=== PATIENT | male | born 2000 | race Caucasian/White ===

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

== ENCOUNTER 2023-12-01 13:38 | Emergency (ER) | payer OTHER ==
[~2023-12-01] VITALS: Ht 167.6 cm; Wt 72.6 kg
[2023-12-01 14:16] LABS: BASO % 0.4 % (0.0-1.0); EOS # 0.3 10^3/uL (0.0-0.5); EOS % 4.1 % (0.0-3.0); HEMATOCRIT 47.1 % (42.0-52.0); HEMOGLOBIN 16.7 g/dl (13.5-17.5); LYMPH # 2.5 10^3/uL (1.5-5.0); MEAN CORPUSCULAR HEMOGLOBIN 30.9 pg (27.0-33.0); MEAN CORPUSCULAR HGB CONC 35.5 g/dl (32.0-36.5); MEAN CORPUSCULAR VOLUME 87.2 fl (80.0-96.0); MONO # 0.7 10^3/uL (0.0-0.8); MONO % 9.5 % (2.0-8.0); NEUTROPHILS # 3.5 10^3/uL (1.5-8.5); NEUTROPHILS % 49.9 % (36.0-66.0); PLATELET COUNT, AUTOMATED 248 10^3/uL (150-450); WHITE BLOOD COUNT 7.1 10^3/uL (4.0-10.0)
[2023-12-01 14:47] LABS: LIPASE 36 U/L (12-53)
[2023-12-01 14:49] LABS: ALBUMIN 4.3 G/DL (3.2-5.2); ALKALINE PHOSPHATASE 79 U/L (46-116); ALT/SGPT 40 U/L (7.0-40); AST/SGOT 25 U/L (<34); BILIRUBIN,DIRECT 0.1 MG/DL (<0.4); BILIRUBIN,TOTAL 0.5 MG/DL (0.3-1.2); BLOOD UREA NITROGEN 24 MG/DL (9-23); CALCIUM LEVEL 9.4 MG/DL (8.5-10.1); CARBON DIOXIDE LEVEL 30 MMOL/L (20-31); CHLORIDE LEVEL 101 MMOL/L (98-107); CK-MB VALUE MASS 1.3 NG/ML (<3.6); CREATININE FOR GFR 0.87 MG/DL (0.70-1.30); GLOMERULAR FILTRATION RATE > 60.0 (>60); GLUCOSE, FASTING 89 MG/DL (60-100); SODIUM LEVEL 138 MMOL/L (136-145)
[2023-12-01 14:50] LABS: THYROID STIMULATING HORMONE 1.938 uIU/ML (0.55-4.78)
[2023-12-01 14:51] LABS: FREE T4 1.19 NG/DL (0.89-1.76)
[2023-12-01 14:53] LABS: CPK CREATINE PHOSPHOKINASE 156 U/L (46-171); MB/CK RELATIVE INDEX 0.83 (< OR =4)
[2023-12-01] MEDS: KETOROLAC 30 MG/ML 1ML VIAL IV ONE (15:10)
[2023-12-01 15:47] LABS: CK-MB VALUE MASS 1.1 NG/ML (<3.6)
[2023-12-01 16:03] LABS: MB/CK RELATIVE INDEX 0.63 (< OR =4)
[2023-12-01] MEDS ORDERED: HOLTER MONITOR XX (16:50)
[2023-12-01 16:55] VITALS: BP 156/85; TEMP 98.2; O2SAT 100
== END 2023-12-01 17:01 | disposition home or self-care (01) ==
LOC: M ED 13:38
DX: R07.89 Other chest pain (principal); Z87.891 Personal history of nicotine dependence
CPT/HCPCS: 71046; 80048; 80076; 82550; 82553; 83690; 84439; 84443; 84484; 85025; 93005; 96374; 99284; J1885

== ENCOUNTER → 2023-12-02 | Outpatient (CLI) | payer OTHER ==
[~2023-12-02] MED LIST: HOLTER MONITOR XX
== END ==
LOC: M EKG 08:54
PROVIDERS: ATTEND Physician Assistant Medical
DX: R00.2 Palpitations (principal)